=== PATIENT | female | born 1980 | race Caucasian/White ===

== ENCOUNTER 2019-06-23 16:43 | Emergency (ER) | payer OTHER ==
[~2019-06-23] VITALS: Ht 165.1 cm; Wt 97.5 kg
[~2019-06-23 16:43] MED LIST: ANTIVERT/2525 M1 PO; BACTRIM DS 8001 TA1 PO; BUSPAR15 MG PO; LEVOTHYROXINE0.1 MG PO; ZOFRAN ODT4 MG SL; ZOLOFT100 MG PO
[2019-06-23] MEDS ORDERED: TESSALON PERLE100 M1 PO (17:51)
[2019-06-23] MEDS ORDERED: PREDNISONE50 MG PO (17:51)
[2019-06-23] MEDS ORDERED: AUGMENTIN 875875 MG PO (17:51)
== END 2019-06-23 18:07 | disposition home or self-care (01) ==
LOC: ED 16:43
DX: J20.9 Acute bronchitis, unspecified (principal); G43.909 Migraine, unspecified, not intractable, without status migrainosus; Z88.1 Allergy status to other antibiotic agents; Z88.8 Allergy status to other drugs, medicaments and biological substances; Z79.899 Other long term (current) drug therapy

== ENCOUNTER 2019-10-08 16:01 | Inpatient (IN) | payer OTHER ==
[~2019-10-08] VITALS: Ht 165.1 cm; Wt 116.2 kg
[~2019-10-08 16:01] MED LIST changes: +AUGMENTIN 875875 MG PO; +PREDNISONE50 MG PO; +TESSALON PERLE100 M1 PO
[2019-10-08 16:21] VITALS: BP 98/74
[2019-10-08 17:25] LABS: BASO # 0.1 10*3/uL (0.0-0.1); BASO % 0.6 % (0.0-1.0); EOS # 0.4 10*3/uL (0.0-0.4); EOS % 3.3 % (1.0-4.0); HEMATOCRIT 40.7 % (37.0-47.0); HEMOGLOBIN 13.3 g/dl (12.0-16.0); LYMPH # 2.7 10*3/uL (1.3-4.4); LYMPH % 22.2 % (27.0-41.0); MEAN CELL VOLUME 98.1 fl (81.0-99.0); MEAN CORPUSCULAR HGB CONC 32.7 g/dl (33.0-37.0); MEAN PLATELET VOLUME 10.5 fl (9.6-12.3); MONO # 0.8 10*3/uL (0.1-1.0); MONO % 6.9 % (3.0-9.0); NEUT % 66.6 % (47.0-73.0); PLATELET COUNT AUTOMATED 281 10*3/uL (130-400); RED BLOOD COUNT 4.15 10*6/uL (4.10-5.10); RED CELL DISTRI WIDTH 12.9 % (0-14.5); WHITE BLOOD COUNT 12.1 10*3/uL (4.8-10.8)
[2019-10-08 17:42] LABS: ALBUMIN 3.3 gm/dl (3.1-4.5); ALKALINE PHOSPHATASE 143 U/L (45-117); BUN 6 mg/dl (7-24); CHLORIDE 109 mmol/L (98-107); CREATININE 0.69 mg/dL (0.55-1.02); POTASSIUM 3.8 mmol/L (3.5-5.1); SGOT/AST 43 IU/L (3-35); SGPT/ALT 72 U/L (12-78); SODIUM 141 mmol/L (136-145); TOTAL PROTEIN 7.5 gm/dL (6.4-8.2)
--- NOTE | 2019-10-08 18:22 | NUR ---
BESS HAS HELPED WITH THE PAIN PER PT CALL LIGHT IN REACH
--- NOTE | 2019-10-08 20:10 | NUR ---
MONS PUBIS IS RED WITH NILD SWELLING AND HARD NO OPEN AREAS NOTED DOCUMENTED CELLULITIS NOTED.
[2019-10-08 20:18] LABS: BILIRUBIN NEGATIVE (NEGATIVE); BLOOD 2+ (NEGATIVE); CLARITY SL CLOUDY (CLEAR); COLOR YELLOW (YELLOW); GLUCOSE NEGATIVE (NEGATIVE); KETONE NEGATIVE (NEGATIVE); LEUKO ESTERASE NEGATIVE (NEGATIVE); NITRITE NEGATIVE (NEGATIVE); SPECIFIC GRAVITY 1.005 (1.005-1.030); UROBILINOGEN 0.2 E.U./dl (0.2-1.0)
[2019-10-08 20:22] VITALS: BP 100/62
--- NOTE | 2019-10-08 20:22 | NUR ---
A 39, admitted to 5E, under the services of ALCIDES Hughes DO with a diagnosis of CELLULITIS. Chief complaint is ABCESS IN THE PUBIC AREA. Patient arrived via wheel chair from ER. Initial assessment completed. Vital signs taken and recorded. ALCIDES HUGHES DO notified of admission to the unit. Orders received. See assessment for past medical history, medications and allergies. Patient and/or family oriented to [facility]. visitation policy reviewed. Clothing/patient valuable form completed. MAGDA PARK RN
[2019-10-08 20:23] LABS: BACTERIA TRACE; RBC 0-2 rbc/hpf (0-2); WBC 0-2 wbc/hpf (0-5)
[2019-10-08] MEDS ORDERED: NEURONTIN300 MG PO (20:30)
--- NOTE | 2019-10-08 20:30 | NUR ---
DR. CELIS AT BEDSIDE TO INTERVIEW AND ASSESS PATIENT, ADVISED THAT ER DID NOT TAKE PHOTOS/MEASURE/OR STAGE PUBIC AREA. AFTER EXAMINATION HE STATED THAT THERE WAS NO OPEN WOUND/S THAT PHOTOS OR MEASUREMENTS WERE NOT NECESSARY.
--- NOTE | 2019-10-08 20:50 | NUR ---
DR. CELIS NOTIFIED THAT PATIENT HOME MEDICATION RECONCILLIATION WAS COMPLETE. AWAITING ORDERS.
--- NOTE | 2019-10-08 23:35 | NUR ---
PRN NORCO GIVEN AT THIS TIME FOR 8/10 PAIN IN THE PELVIC AREA DUE TO CELLULITIS. PATIENT A&O X3 AT THIS TIME.
--- NOTE | 2019-10-08 23:58 | NUR ---
INITIAL CHART CHECK COMPLETE
[2019-10-09] VITALS: BP 100/62
--- NOTE | 2019-10-09 00:30 | NUR ---
PATIENT RESTING IN BED IN A POSITION OF COMFORT WITH EYES CLOSED AT THIS TIME, PATIENT EASILY ARROUSABLE AND APPROPRIATE.
[2019-10-09 06:28] LABS: BASO # 0.1 10*3/uL (0.0-0.1); BASO % 0.5 % (0.0-1.0); BUN 6 mg/dl (7-24); CHLORIDE 115 mmol/L (98-107); CREATININE 0.72 mg/dL (0.55-1.02); EOS # 0.4 10*3/uL (0.0-0.4); EOS % 3.7 % (1.0-4.0); HEMATOCRIT 36.7 % (37.0-47.0); HEMOGLOBIN 12.1 g/dl (12.0-16.0); LYMPH # 3.1 10*3/uL (1.3-4.4); LYMPH % 27.8 % (27.0-41.0); MEAN CELL VOLUME 96.8 fl (81.0-99.0); MEAN CORPUSCULAR HGB 31.9 pg (27.0-31.0); MEAN PLATELET VOLUME 11.1 fl (9.6-12.3); MONO # 0.8 10*3/uL (0.1-1.0); MONO % 7.2 % (3.0-9.0); NEUT # 6.7 10*3/uL (2.3-7.9); NEUT % 60.5 % (47.0-73.0); PLATELET COUNT AUTOMATED 252 10*3/uL (130-400); POTASSIUM 4.1 mmol/L (3.5-5.1); RED BLOOD COUNT 3.79 10*6/uL (4.10-5.10); RED CELL DISTRI WIDTH 12.8 % (0-14.5); SODIUM 143 mmol/L (136-145); WHITE BLOOD COUNT 11.1 10*3/uL (4.8-10.8)
[2019-10-09 08:00] VITALS: BP 101/52
--- NOTE | 2019-10-09 08:51 | NUR ---
PT REQUESTED AND WAS MEDICATED WITH NORCO FOR C/O PAIN. CALL LIGHT IN REACH. WILL MONITOR
--- NOTE | 2019-10-09 10:00 | NUR ---
Box Finisher in to talk to patient. Patient states lives at home with family. There are no steps in the home. Physician: marcos eddy Pharmacy: [facility] health services: none Patient's level of ADLs: INDEPENDENT Patient has working utilities: all working DME: none Follow-up physician's appointment after d/c: will be made by hospitalist nurse director upon discharge Does patient want to access PORTAL?: no Discharge plan discussed with darren fatima, she states she lives at home with family, she is independent in adls and ambulation, she stated she will return home when medically stable and denies any home needs, case management will follow. ALEXX RANDALL
--- NOTE | 2019-10-09 10:00 | NUR ---
MEDICATION EFFECTIVE PER PT
[2019-10-09 12:00] VITALS: BP 108/61
[2019-10-09 16:00] VITALS: BP 111/77
[2019-10-09 20:00] VITALS: BP 109/78
--- NOTE | 2019-10-09 20:04 | NUR ---
24 HOUR CHART CHECK COMPLETE
--- NOTE | 2019-10-09 20:12 | NUR ---
DR. CELIS CONTACTED IN REFERENCE TO PATIENT REQUEST FOR CHANGE IN PAIN MEDICATION FROM NORCO TO TORADOL. ORDERS RECEIVED, SEE EMAR.
--- NOTE | 2019-10-09 20:43 | NUR ---
PATIENT MEDICATED WITH TORADOL IV AT THIS TIME AT HER REQUEST FOR 9/10 PAIN AT THE CELLULITIS SITE NEAR THE MONS PUBIS REGION. A&O X3 AT THIS TIME. CALL LIGHT WITHIN REACH, WILL CONTINUE TO MONITOR.
--- NOTE | 2019-10-09 21:40 | NUR ---
PATIENT STATED THAT HER PAIN LEVEL WAS NOW A 4/10 AFTER PRN IV TORADOL. A&O X3, CALL LIGHT WITHIN REACH, WILL CONTINUE TO MONITOR.
[2019-10-10] VITALS: BP 112/73
[2019-10-10 06:33] LABS: BASO # 0.1 10*3/uL (0.0-0.1); BASO % 0.6 % (0.0-1.0); EOS # 0.4 10*3/uL (0.0-0.4); EOS % 4.4 % (1.0-4.0); HEMATOCRIT 34.7 % (37.0-47.0); HEMOGLOBIN 11.6 g/dl (12.0-16.0); LYMPH # 2.6 10*3/uL (1.3-4.4); LYMPH % 28.2 % (27.0-41.0); MEAN CELL VOLUME 95.9 fl (81.0-99.0); MEAN CORPUSCULAR HGB CONC 33.4 g/dl (33.0-37.0); MEAN PLATELET VOLUME 10.9 fl (9.6-12.3); MONO # 0.8 10*3/uL (0.1-1.0); MONO % 8.2 % (3.0-9.0); NEUT # 5.4 10*3/uL (2.3-7.9); NEUT % 58.1 % (47.0-73.0); PLATELET COUNT AUTOMATED 259 10*3/uL (130-400); RED BLOOD COUNT 3.62 10*6/uL (4.10-5.10); RED CELL DISTRI WIDTH 12.7 % (0-14.5); WHITE BLOOD COUNT 9.3 10*3/uL (4.8-10.8)
[2019-10-10 06:46] LABS: BUN 8 mg/dl (7-24); CHLORIDE 113 mmol/L (98-107); CREATININE 0.79 mg/dL (0.55-1.02); POTASSIUM 3.7 mmol/L (3.5-5.1); SODIUM 141 mmol/L (136-145)
--- NOTE | 2019-10-10 07:20 | NUR ---
VITAL SIGNS STABLE. PT ALERT AND ORIENTED X3. LEESA. POSITIVE PEDAL PULSES. REPIRATIONS EASY, AND REGULAR. HEART SOUNDS NORMAL. LUNGS SOUND CLEAR THROUGHOUT. ABDOMEN SOFT, NON TENDER, NON DISTENDED. IV SITE TO RIGHT ANTECUBITAL IS INTACT AND SHOWS NO SIGNS OF INFECTION. RED, WARM AND HARD SKIN TO THE TOP RIGHT PUBIS AREA. PT DID NOT C/O PAIN AT THIS TIME. PT IS VERY PLEASANT AND COOPERATIVE. WILL CONTINUE TO MONITOR. DAPHNIE BACON SPMIKECC
[2019-10-10 08:00] VITALS: BP 116/60
[2019-10-10] MEDS ORDERED: DOXYCYCLINE100 M3 PO (10:35)
[2019-10-10] MEDS ORDERED: AUGMENTIN 875875 MG PO (10:35)
--- NOTE | 2019-10-10 11:20 | NUR ---
Discharge instructions reviewed with patient. Patient receptive and verbalizes understanding. Follow-up care arranged. Written instructions given to patient. PATIENT DISCHARGED TO [facility] BY WHEELCHAIR, ACCOMPANIED BY FERRY TERMINAL AGENT, FOR TRANSPORT HOME BY PRIVATE VEHICLE. YUNG ROOT
--- NOTE | 2019-10-10 11:35 | NUR ---
Discharge instructions reviewed with patient/family. Patient receptive and verbalizes understanding. Follow-up care arranged. Written instructions given to patient/family. HEPLOCK REMOVED. ALL BELONGINGS WITH PATIENT. DISCHARGED VIA WHEELCHAIR. CONDITION STABLE. DAPHNIE BACON SPRACHAEL BORDEN
--- NOTE | 2019-10-10 11:47 | NUR ---
HEAD PORTER BAGGAGE IN TO TALK WITH PT. PT CONTINUES TO DENY NEEDS AT HOME ON DISCHARGE WHEN MEDICALLY STABLE. WILL CONTINUE TO FOLLOW.
== END 2019-10-10 11:45 | disposition home or self-care (01) | DRG 531 ==
LOC: ED 16:01 → 5E 19:27 → EDHOLD 19:27 → 5E 19:50
PROVIDERS: Internal Medicine; Physician Assistant; ADMIT Family Medicine
DX: N73.2 Unspecified parametritis and pelvic cellulitis (principal); E87.8 Other disorders of electrolyte and fluid balance, not elsewhere classified; R74.0 Nonspecific elevation of levels of transaminase and lactic acid dehydrogenase [LDH]; E66.9 Obesity, unspecified; E03.9 Hypothyroidism, unspecified; F17.210 Nicotine dependence, cigarettes, uncomplicated; Z68.41 Body mass index [BMI] 40.0-44.9, adult; Z71.6 Tobacco abuse counseling; Z88.1 Allergy status to other antibiotic agents; Z88.8 Allergy status to other drugs, medicaments and biological substances; Z82.49 Family history of ischemic heart disease and other diseases of the circulatory system; Z79.899 Other long term (current) drug therapy

== ENCOUNTER 2019-11-07 19:08 | Emergency (ER) | payer SELFPAY ==
[~2019-11-07] VITALS: Ht 165.1 cm; Wt 102.1 kg
[~2019-11-07 19:08] MED LIST changes: +DOXYCYCLINE100 M3 PO; +NEURONTIN300 MG PO
[2019-11-07] MEDS ORDERED: NAPROSYN500 MG PO (20:16)
[2019-11-07] MEDS ORDERED: CEPHALEXIN500 M1 PO (20:16)
== END 2019-11-07 20:25 | disposition home or self-care (01) ==
LOC: ED 19:08
DX: L02.414 Cutaneous abscess of left upper limb (principal); G43.909 Migraine, unspecified, not intractable, without status migrainosus; E07.9 Disorder of thyroid, unspecified; F17.200 Nicotine dependence, unspecified, uncomplicated; Z88.8 Allergy status to other drugs, medicaments and biological substances; Z88.1 Allergy status to other antibiotic agents; Z79.2 Long term (current) use of antibiotics; Z79.899 Other long term (current) drug therapy

== ENCOUNTER 2021-01-18 13:01 | Emergency (ER) | payer OTHER ==
[~2021-01-18] VITALS: Ht 165.1 cm; Wt 93.9 kg
[~2021-01-18 13:01] MED LIST changes: +CEPHALEXIN500 M1 PO; +NAPROSYN500 MG PO
[2021-01-18 13:36] LABS: BILIRUBIN Negative (Negative); BLOOD Trace-Lysed (Negative); CLARITY Clear (Clear); COLOR Yellow (Yellow); GLUCOSE Negative (Negative); KETONE Negative (Negative); LEUKO ESTERASE Negative (Negative); NITRITE Negative (Negative); PH 6.5 (4.5-8.0)
[2021-01-18 13:43] LABS: BACTERIA TRACE; WBC 0-2 wbc/hpf (0-5)
[2021-01-18 14:27] LABS: BASO # 0.1 10*3/uL (0.0-0.1); BASO % 0.7 % (0.0-1.0); EOS # 0.3 10*3/uL (0.0-0.4); EOS % 3.4 % (1.0-4.0); HEMATOCRIT 42.9 % (37.0-47.0); LYMPH # 2.7 10*3/uL (1.3-4.4); LYMPH % 31.1 % (27.0-41.0); MEAN CELL VOLUME 90.1 fl (81.0-99.0); MEAN CORPUSCULAR HGB 30.3 pg (27.0-31.0); MEAN CORPUSCULAR HGB CONC 33.6 g/dl (33.0-37.0); MEAN PLATELET VOLUME 10.5 fl (9.6-12.3); MONO # 0.6 10*3/uL (0.1-1.0); MONO % 6.7 % (3.0-9.0); NEUT # 5.1 10*3/uL (2.3-7.9); NEUT % 57.9 % (47.0-73.0); PLATELET COUNT AUTOMATED 277 10*3/uL (130-400); RED BLOOD COUNT 4.76 10*6/uL (4.10-5.10); RED CELL DISTRI WIDTH 12.7 % (0-14.5); WHITE BLOOD COUNT 8.8 10*3/uL (4.8-10.8)
[2021-01-18 14:44] LABS: ALBUMIN 3.5 gm/dl (3.1-4.5); ALKALINE PHOSPHATASE 100 U/L (45-117); BUN 10 mg/dl (7-24); CHLORIDE 108 mmol/L (98-107); CREATININE 0.74 mg/dL (0.55-1.02); LIPASE 125 U/L (73-393); POTASSIUM 4.4 mmol/L (3.5-5.1); SGOT/AST 16 IU/L (3-35); SGPT/ALT 26 U/L (12-78); SODIUM 140 mmol/L (136-145); TOTAL PROTEIN 7.3 gm/dL (6.4-8.2)
[2021-01-18 14:49] LABS: BETA-HCG, QUANT < 1.0 mIU/mL (1-3)
[2021-01-18] MEDS ORDERED: ZOFRAN4 MG PO (17:01)
== END 2021-01-18 17:10 | disposition home or self-care (01) ==
LOC: ED 13:01
PROVIDERS: Emergency Medicine; Nurse Practitioner
DX: R10.12 Left upper quadrant pain (principal); E03.9 Hypothyroidism, unspecified; Z79.899 Other long term (current) drug therapy; Z98.890 Other specified postprocedural states

== ENCOUNTER 2022-11-02 14:35 | Emergency (ER) | payer OTHER ==
[~2022-11-02] VITALS: Ht 165.1 cm; Wt 99.8 kg
[~2022-11-02 14:35] MED LIST changes: +ZOFRAN4 MG PO
[2022-11-02] MEDS ORDERED: PERCOCET 5-3251 EACH PO ×3 (16:24→16:33)
[2022-11-04] MEDS ORDERED: HYDROCODONE-AC1 EAC1 PO (16:28)
[2022-11-06] MEDS ORDERED: OMEPRAZOLE40 MG PO (13:06)
[2022-11-06] MEDS ORDERED: CYCLOBENZAPRINE10 MG PO (13:07)
[2022-11-06] MEDS ORDERED: ADVAIR HFA 115-12 GM INH (13:07)
== END 2022-11-02 16:47 | disposition home or self-care (01) ==
LOC: ED 14:35
DX: S52.572A Other intraarticular fracture of lower end of left radius, initial encounter for closed fracture (principal); F41.9 Anxiety disorder, unspecified; F32.A Depression, unspecified; G43.909 Migraine, unspecified, not intractable, without status migrainosus; Z88.8 Allergy status to other drugs, medicaments and biological substances; Z98.890 Other specified postprocedural states; F17.200 Nicotine dependence, unspecified, uncomplicated; W19.XXXA Unspecified fall, initial encounter; Y93.89 Activity, other specified; Y92.39 Other specified sports and athletic area as the place of occurrence of the external cause; Y99.8 Other external cause status

== ENCOUNTER → 2022-11-11 | Day surgery (SDC) | payer MEDICAID ==
[2022-11-06 18:10] LABS: BUN 8 mg/dl (9-23); CHLORIDE 105 mmol/L (98-107); POTASSIUM 4.5 mmol/L (3.4-5.1)
[~2022-11-11] VITALS: Ht 165.1 cm; Wt 104.3 kg
[~2022-11-11] MED LIST changes: +ADVAIR HFA 115-12 GM INH; +CYCLOBENZAPRINE10 MG PO; +HYDROCODONE-AC1 EAC1 PO; +OMEPRAZOLE40 MG PO; +PERCOCET 5-3251 EACH PO
[2022-11-11 10:01] VITALS: BP 130/79
[2022-11-11 12:30] VITALS: BP 114/66
[2022-11-11 12:45] VITALS: BP 112/46
[2022-11-11 13:00] VITALS: BP 115/52
[2022-11-11 13:15] VITALS: BP 133/65
[2022-11-11 13:25] VITALS: BP 107/65
== END | disposition home or self-care (01) ==
LOC: SDC 11-06 12:30
PROVIDERS: ATTEND Orthopaedic Surgery
DX: S52.572A Other intraarticular fracture of lower end of left radius, initial encounter for closed fracture (principal); F41.9 Anxiety disorder, unspecified; F32.A Depression, unspecified; G43.909 Migraine, unspecified, not intractable, without status migrainosus; J45.909 Unspecified asthma, uncomplicated; K21.9 Gastro-esophageal reflux disease without esophagitis; W18.39XA Other fall on same level, initial encounter; Y93.54 Activity, bowling

== ENCOUNTER → 2022-11-24 | Outpatient (CLI) | payer MEDICAID | END | disposition home or self-care (01) | LOC: ORTHO 01:09 | PROVIDERS: ATTEND Orthopaedic Surgery | DX: S52.572D Other intraarticular fracture of lower end of left radius, subsequent encounter for closed fracture with routine healing (principal); X58.XXXD Exposure to other specified factors, subsequent encounter; Z98.890 Other specified postprocedural states ==

== ENCOUNTER → 2022-12-22 | Outpatient (CLI) | payer MEDICAID | END | disposition home or self-care (01) | LOC: ORTHO 01:32 | PROVIDERS: ATTEND Orthopaedic Surgery | DX: S52.572D Other intraarticular fracture of lower end of left radius, subsequent encounter for closed fracture with routine healing (principal); X58.XXXD Exposure to other specified factors, subsequent encounter ==

== ENCOUNTER 2023-05-22 11:51 | Emergency (ER) | payer MEDICAID ==
[~2023-05-22] VITALS: Ht 170.1 cm; Wt 72.6 kg
[2023-05-22 12:52] LABS: BASO % 0.6 % (0.0-1.0); EOS # 0.2 10*3/uL (0.0-0.4); EOS % 2.6 % (1.0-4.0); HEMATOCRIT 41.7 % (37.0-47.0); LYMPH # 1.8 10*3/uL (1.3-4.4); LYMPH % 25.9 % (27.0-41.0); MEAN CELL VOLUME 90.5 fl (81.0-99.0); MEAN CORPUSCULAR HGB 32.1 pg (27.0-31.0); MEAN CORPUSCULAR HGB CONC 35.5 g/dl (33.0-37.0); MEAN PLATELET VOLUME 10.4 fl (9.6-12.3); MONO # 0.5 10*3/uL (0.1-1.0); MONO % 7.7 % (3.0-9.0); NEUT # 4.4 10*3/uL (2.3-7.9); NEUT % 62.9 % (47.0-73.0); PLATELET COUNT AUTOMATED 237 10*3/uL (130-400); RED BLOOD COUNT 4.61 10*6/uL (4.10-5.10); RED CELL DISTRI WIDTH 13.9 % (0-14.5)
[2023-05-22 13:05] LABS: ACT PARTIAL THROMBO TIME 29.1 SECONDS (20.0-32.1)
[2023-05-22 13:19] LABS: ALKALINE PHOSPHATASE 82 U/L (46-116); BUN 8 mg/dl (9-23); CHLORIDE 110 mmol/L (98-107); LIPASE 30 U/L (12-53); SGPT/ALT 13 U/L (10-49); TOTAL PROTEIN 6.7 gm/dL (6.0-8.0)
== END 2023-05-22 14:28 | disposition home or self-care (01) ==
LOC: ED 11:51
PROVIDERS: Physician Assistant
DX: R00.2 Palpitations (principal); F41.9 Anxiety disorder, unspecified; F32.A Depression, unspecified; G43.909 Migraine, unspecified, not intractable, without status migrainosus; J45.909 Unspecified asthma, uncomplicated; K21.9 Gastro-esophageal reflux disease without esophagitis; Z88.8 Allergy status to other drugs, medicaments and biological substances; Z98.890 Other specified postprocedural states; F17.200 Nicotine dependence, unspecified, uncomplicated